=== PATIENT | female | born 1985 | race Caucasian/White ===

== ENCOUNTER 2019-07-14 19:51 | Observation (INO) | payer BC ==
[2019-07-14] MEDS ORDERED: KETOROLAC 30 MG/ML 1 ML VIAL IVP STA (20:19)
[2019-07-14] MEDS ORDERED: SODIUM CHLORIDE 0.9% 1,000 ML IV STA (20:19)
--- NOTE | 2019-07-14 20:24 | ED ---
Abdominal Pain HPI <Vahe Quintana - Last Filed: 07/14/19 21:52> - General Source: patient Mode of arrival: ambulatory Limitations: no limitations <Nelida Holland - Last Filed: 07/14/19 22:17> - General Chief Complaint: Abdominal Pain Stated Complaint: Abd Pain Time Seen by Provider: 07/14/19 19:58 - History of Present Illness Initial Comments: Patient is a 33-year-old female presenting to the emergency department with complaints of right lower quadrant pain 2 days. Patient states the pain sta rted yesterday near her belly button has migrated to her right lower quadrant. She rates the pain at 7/10. She gets some relief of symptoms when laying still. She reports increase in symptoms when she tries to sit forward, stand up or walk. She does admit to left ovary removal, no other abdominal surgeries. She denies having a fever, chills, shortness of breath, chest pain. She does admit to nausea and vomiting yesterday. She denies diarrhea. She had regular bowel movement this morning. She denies being at this time secondary to IUD. She denies any urinary complaints. She has no other complaints at this time. Upon arrival to the ER, patient is tachycardia at 130, rest of vitals are normal. (Nelida Holland) - Related Data Home Medications Medication Instructions Recorded Confirmed Escitalopram [Lexapro] 10 mg PO HS 07/14/19 07/14/19 Allergies Allergy/AdvReac Type Severity Reaction Status Date / Time latex Allergy Rash/Hives Verified 07/14/19 19:58 Review of Systems ROS Other: All systems not noted in ROS Statement are negative. <Vahe Quintana - Last Filed: 07/14/19 21:52> ROS Other: All systems not noted in ROS Statement are negative. <Nelida Holland - Last Filed: 07/14/19 22:17> ROS Statement: Those systems with pertinent positive or pertinent negative responses have been documented in the HPI. Past Medical History History of Any Multi-Drug Resistant Organisms: None Reported Additional Past Surgical History / Comment(s): left ovary removal Past Psychological History: Anxiety Smoking Status: Never smoker Past Alcohol Use History: Occasional Past Drug Use History: None Reported <Nelida Holland - Last Filed: 07/14/19 22:17> General Exam Limitations: no limitations <Nelida Holland - Last Filed: 07/14/19 22:17> - General Exam Comments Initial Comments: GENERAL: Well-appearing, well-nourished and in no acute distress, although appears uncomfortable. HEAD: Atraumatic, normocephalic. EYES: Pupils equal round and reactive to light, extraocular movements intact, sclera anicteric, conjunctiva are normal. ENT: TMs normal, nares patent, oropharynx clear without exudates. Moist mucous membranes. NECK: Normal range of motion, supple without lymphadenopathy or JVD. LUNGS: Breath sounds clear to auscultation bilaterally and equal. No wheezes rales or rhonchi. HEART: Tachycardia rate and rhythm without murmurs, rubs or gallops. ABDOMEN: Tenderness to palpation of the right lower quadrant, positive rebound, positive guarding. Mild right upper quadrant tenderness. Soft, hypoactive bowel sounds. No masses appreciated. : Deferred EXTREMITIES: Normal range of motion, no pitting or edema. No clubbing or cyanosis. NEUROLOGICAL: Normal speech, normal gait. PSYCH: Normal mood, normal affect. SKIN: Warm, Dry, normal turgor, no rashes or lesions noted. (Nelida Holland) Course <Vahe Quintana - Last Filed: 07/14/19 21:52> Vital Signs 07/14/19 07/14/19 19:55 22:14 Temperature 99.5 F 98.4 F Pulse Rate 129 H 104 H Respiratory 20 18 Rate Blood Pressure 129/84 123/82 O2 Sat by Pulse 96 95 Oximetry - Reevaluation(s) Reevaluation #1: 07/14/19 21:52 PA supervision: I proceeded [id number] evaluation the patient does present with complaints of pain and right lower quadrant pain she started yesterday. Elevated white blood cell count was noted over the left shift. Temperature 99.5 CAT scan does show evidence of appendicitis. I did discuss the case with Dr. Miles. The patient will be admitted place an IV antibiotics and by mouth (Vahe Quintana) Medical Decision Making - Lab Data Result diagrams: 07/14/19 20:30 07/14/19 20:30 <Vahe Quintana - Last Filed: 07/14/19 21:52> - Lab Data Result diagrams: 07/14/19 20:30 07/14/19 20:30 <Nelida Holland - Last Filed: 07/14/19 22:17> - Medical Decision Making Patient is a 33-year-old female presenting with right lower quadrant pain 2 days. Patient arrives tachycardia, afebrile. On exam patient has right lower quadrant tenderness with positive rebound. Lab work shows leukocytosis of 17, rest of labs are within normal limits. Lactic acid is normal. Urine does show small bacteria, urine cultures pending. Computed tomography scan of the abdomen was obtained and shows evidence for early acute appendicitis. No abscess seen at this time. Case was discussed with on-call surgeon, Dr. Miles. Patient will be admitted, started on antibiotics and will be NPO. Patient is in agreem ent this plan of care. Case discussed with Dr. Quintana. (Nelida Holland) - Lab Data Lab Results 07/14/19 07/14/19 07/14/19 Range/Units 20:30 20:30 20:30 WBC 17.3 H (3.8-10.6) k/uL RBC 5.01 (3.80-5.40) m/uL Hgb 14.9 (11.4-16.0) gm/dL Hct 44.7 (34.0-46.0) % MCV 89.2 (80.0-100.0) fL MCH 29.7 (25.0-35.0) pg MCHC 33.3 (31.0-37.0) g/dL RDW 12.6 (11.5-15.5) % Plt Count 326 (150-450) k/uL Neutrophils % 81 % Lymphocytes % 11 % Monocytes % 4 % Eosinophils % 2 % Basophils % 0 % Neutrophils # 14.1 H (1.3-7.7) k/uL Lymphocytes # 1.9 (1.0-4.8) k/uL Monocytes # 0.7 (0-1.0) k/uL Eosinophils # 0.4 (0-0.7) k/uL Basophils # 0.1 (0-0.2) k/uL PT 10.3 (9.0-12.0) sec INR 1.0 (<1.2) APTT 25.4 (22.0-30.0) sec Sodium (137-145) mmol/L Potassium (3.5-5.1) mmol/L Chloride (98-107) mmol/L Carbon Dioxide (22-30) mmol/L Anion Gap mmol/L BUN (7-17) mg/dL Creatinine (0.52-1.04) mg/dL Est GFR (CKD-EPI)AfAm (>60 ml/min/1.73 sqM) Est GFR (CKD-EPI)NonAf (>60 ml/min/1.73 sqM) Glucose (74-99) mg/dL Plasma Lactic Acid Eric (0.7-2.0) mmol/L Calcium (8.4-10.2) mg/dL Total Bilirubin (0.2-1.3) mg/dL AST (14-36) U/L ALT (4-34) U/L Alkaline Phosphatase (38-126) U/L Total Protein (6.3-8.2) g/dL Albumin (3.5-5.0) g/dL Amylase (30-110) U/L Lipase (23-300) U/L Urine Color Yellow Urine Appearance Cloudy H (Clear) Urine pH 6.5 (5.0-8.0) Ur Specific [place] 1.034 (1.001-1.035) Urine Protein 1+ H (Negative) Urine Glucose (UA) Negative (Negative) Urine Ketones 4+ H (Negative) Urine Blood Negative (Negative) Urine Nitrite Negative (Negative) Urine Bilirubin 1+ H (Negative) Urine Urobilinogen 4.0 (<2.0) mg/dL Ur Leukocyte Esterase Large H (Negative) Urine RBC 10 H (0-5) /hpf Urine WBC 30 H (0-5) /hpf Ur Squamous Epith Cells 36 H (0-4) /hpf Calcium Oxalate Crystal Many H (None) /hpf Amorphous Sediment Rare H (None) /hpf Urine Bacteria Occasional H (None) /hpf Urine Mucus Few H (None) /hpf Urine HCG, Qual (Not Detectd) 07/14/19 07/14/19 07/14/19 Range/Units 20:30 20:30 20:30 WBC (3.8-10.6) k/uL RBC (3.80-5.40) m/uL Hgb (11.4-16.0) gm/dL Hct (34.0-46.0) % MCV (80.0-100.0) fL MCH (25.0-35.0) pg MCHC (31.0-37.0) g/dL RDW (11.5-15.5) % Plt Count (150-450) k/uL Neutrophils % % Lymphocytes % % Monocytes % % Eosinophils % % Basophils % % Neutrophils # (1.3-7.7) k/uL Lymphocytes # (1.0-4.8) k/uL Monocytes # (0-1.0) k/uL Eosinophils # (0-0.7) k/uL Basophils # (0-0.2) k/uL PT (9.0-12.0) sec INR (<1.2) APTT (22.0-30.0) sec Sodium 136 L (137-145) mmol/L Potassium 3.5 (3.5-5.1) mmol/L Chloride 101 (98-107) mmol/L Carbon Dioxide 24 (22-30) mmol/L Anion Gap 11 mmol/L BUN 11 (7-17) mg/dL Creatinine 0.59 (0.52-1.04) mg/dL Est GFR (CKD-EPI)AfAm >90 (>60 ml/min/1.73 sqM) Est GFR (CKD-EPI)NonAf >90 (>60 ml/min/1.73 sqM) Glucose 121 H (74-99) mg/dL Plasma Lactic Acid Eric 1.0 (0.7-2.0) mmol/L Calcium 9.1 (8.4-10.2) mg/dL Total Bilirubin 0.5 (0.2-1.3) mg/dL AST 28 (14-36) U/L ALT 21 (4-34) U/L Alkaline Phosphatase 73 (38-126) U/L Total Protein 7.3 (6.3-8.2) g/dL Albumin 4.4 (3.5-5.0) g/dL Amylase 50 (30-110) U/L Lipase 50 (23-300) U/L Urine Color Urine Appearance (Clear) Urine pH (5.0-8.0) Ur Specific [place] (1.001-1.035) Urine Protein (Negative) Urine Glucose (UA) (Negative) Urine Ketones (Negative) Urine Blood (Negative) Urine Nitrite (Negative) Urine Bilirubin (Negative) Urine Urobilinogen (<2.0) mg/dL Ur Leukocyte Esterase (Negative) Urine RBC (0-5) /hpf Urine WBC (0-5) /hpf Ur Squamous Epith Cells (0-4) /hpf Calcium Oxalate Crystal (None) /hpf Amorphous Sediment (None) /hpf Urine Bacteria (None) /hpf Urine Mucus (None) /hpf Urine HCG, Qual Not Detected (Not Detectd) Disposition <Vahe Quintana - Last Filed: 07/14/19 21:52> Is patient prescribed a controlled substance at d/c from ED?: No Decision Date: 07/14/19 Decision Time: 22:17 <Nelida Holland - Last Filed: 07/14/19 22:17> Clinical Impression: Acute appendicitis Disposition: ADMITTED IP TO THIS HOSP Condition: Stable Referrals: Rajesh Hermosillo DO [Primary Care Provider] - 1-2 days
[2019-07-14 20:43] LABS: Basophils # (A) 0.1 k/uL (0-0.2); Basophils % (A) 0 %; Eosinophils # (A) 0.4 k/uL (0-0.7); Eosinophils % (A) 2 %; HCT 44.7 % (34.0-46.0); HGB 14.9 gm/dL (11.4-16.0); Lymphocytes # (A) 1.9 k/uL (1.0-4.8); Lymphocytes % (A) 11 %; MCH 29.7 pg (25.0-35.0); MCHC 33.3 g/dL (31.0-37.0); MCV 89.2 fL (80.0-100.0); Mean Platelet Volume 8.8; Monocytes # (A) 0.7 k/uL (0-1.0); Monocytes % (A) 4 %; Neutrophils # (A) 14.1 k/uL (1.3-7.7); Neutrophils % (A) 81 %; Platelet Count 326 k/uL (150-450); RBC 5.01 m/uL (3.80-5.40); RDW 12.6 % (11.5-15.5); WBC 17.3 k/uL (3.8-10.6)
[2019-07-14 20:54] LABS: ALT 21 U/L (4-34); AST 28 U/L (14-36); African American GFR (CKD) >90 (>60 ml/min/1.73 sqM); Albumin 4.4 g/dL (3.5-5.0); Alkaline Phosphatase 73 U/L (38-126); Amylase 50 U/L (30-110); Anion Gap 11 mmol/L; Blood Urea Nitrogen 11 mg/dL (7-17); Calcium 9.1 mg/dL (8.4-10.2); Carbon Dioxide 24 mmol/L (22-30); Chloride 101 mmol/L (98-107); Glucose 121 mg/dL (74-99); Non-African American GFR(CKD) >90 (>60 ml/min/1.73 sqM); Potassium 3.5 mmol/L (3.5-5.1); Sodium 136 mmol/L (137-145); Total Bilirubin 0.5 mg/dL (0.2-1.3); Total Protein 7.3 g/dL (6.3-8.2)
[2019-07-14 20:59] LABS: Amorphous Sediment,Urine Rare /hpf; Appearance,Urine Cloudy (Clear); Bacteria,Urine Occasional /hpf; Bilirubin,Urine 1+ (Negative); Blood,Urine Negative (Negative); Calcium Oxalate Crystals,Urine Many /hpf; Color,Urine Yellow; Glucose,Urine (UA) Negative (Negative); Ketones,Urine 4+ (Negative); Leukocyte Esterase,Urine Large (Negative); Mucus,Urine Few /hpf; Nitrite,Urine Negative (Negative); PH, Urine 6.5 (5.0-8.0); Partial Thromboplastin Time 25.4 sec (22.0-30.0); Protein,Urine 1+ (Negative); Prothrombin Time 10.3 sec (9.0-12.0); RBC,Urine 10 /hpf (0-5); Specific Gravity,Urine 1.034 (1.001-1.035); Squamous Epithelial Cell,Urine 36 /hpf (0-4); WBC,Urine 30 /hpf (0-5)
--- NOTE | 2019-07-14 21:37 | CT ---
EXAMINATION TYPE: CT abdomen pelvis w con DATE OF EXAM: 07/14/2019 COMPARISON: Right lower quadrant pain INDICATION: RLQ pain DLP: 1417.6 mGycm, Automated exposure control for dose reduction was used. CONTRAST: 100 mL of Isovue 300. Study performed without Oral Contrast TECHNIQUE: Axial images were obtained from above the diaphragm to the pubic rami in the axial plane a t 5 mm thick sections. Reconstructed images are reviewed on the computer in the coronal plane. FINDINGS: Limited CT sections are obtained the lung bases. The lung bases are clear. CT ABDOMEN: Liver: Normal Spleen: Normal Pancreas: Normal Adrenal glands: The adrenal glands are normal. Gallbladder: Normal Kidneys: No masses are evident. No hydronephrosis is present. Tiny left cortical renal cyst is pres ent on delayed images. Aorta: Normal Inferior vena cava: Normal. CT PELVIS: Loops of bowel within the abdomen and pelvis are normal. The studies performed without oral contr ast limiting bowel evaluation. Appendix: There is thickening and some enhancement of the appendix wall. Appendix diameter is 1.1 cm greater than a normal 0.7 cm. Inflammatory changes are in the right lower quadrant adjacent to the ap pendix. Findings are compatible with early appendicitis. No abscess formation or perforation is ident ified. Urinary bladder: Decompressed and cannot be evaluated Genitourinary structures: Uterus appears normal. There is an IUD within uterus. There is a right adne xal cyst measuring 2.3 cm. A second right adnexal cyst is present measuring 2.8 cm. Left adnexal is u nremarkable Osseous structures: No suspicious lytic or sclerotic lesions. IMPRESSIONS: 1. Findings compatible with acute appendicitis. Report was called to emergency RN [place] by Dr. Mickie stone by telephone at the time of interpretation. 2. Two right-sided ovarian cysts.
[2019-07-14] MEDS ORDERED: KETOROLAC 30 MG/ML 1 ML VIAL IVP PRN (21:57)
[2019-07-14] MEDS ORDERED: IBUPROFEN 400 MG TAB PO PRN (21:57)
[2019-07-14] MEDS ORDERED: MORPHINE SULFATE 4 MG/ML SYRINGE IV PRN (21:57)
[2019-07-14] MEDS ORDERED: NALOXONE 0.4 MG/ML 1 ML VIAL IV PRN (21:57)
[2019-07-14] MEDS ORDERED: ONDANSETRON 4 MG/2 ML VIAL IVP PRN (21:57)
[2019-07-14] MEDS ORDERED: PIPERACILLIN-TAZOBACTAM 3.375 GM in SODIUM CHLORIDE 0.9% 100 ML IVPB STA (21:59)
[2019-07-14] MEDS: SODIUM CHLORIDE 0.9% 1,000 ML IV SCH (22:10)
--- NOTE | 2019-07-15 08:46 | P.GSHP ---
<Shikha Dotson - Last Filed: 07/15/19 08:41> History of Present Illness HISTORY OF PRESENTING ILLNESS This is a pleasant 33-year-old female. Presented to the emergency room with a 2 day history of abdominal discomfort with nausea and vomiting and low-grade temps at home. She states her pain initially started just above the umbilicus and then radiated mostly to the right side and has been constant. Continues to have ongoing discomfort with any movement or palpation. Currently pain is 2 out of 10. Nausea and vomiting have resolved. Started on [facility] emergency department. DIAGNOSTICS CT abdomen and pelvis with contrast revealed findings compatible with acute appendicitis. Laboratory data reviewed, WBC 17.3, hemoglobin 14.9, platelets 326, sodium 136, potassium 3.5, creatinine 0.59, AST 28 ALT 21, Urine hcg negative. REVIEW OF SYSTEMS At the time of my exam: CONSTITUTIONAL: Denies fever or chills. CARDIOVASCULAR: Denies chest pain, shortness of breath, orthopnea, PND or palpitations. RESPIRATORY: Denies cough. GASTROINTESTINAL: Complains of abdominal pain. Denies diarrhea, constipation, nausea or vomiting. MUSCULOSKELETAL: Denies myalgias. NEUROLOGIC: Denies numbness, tingling or weakness. ENDOCRINE: Denies fatigue, weight change, polydipsia or polyurina. GENITOURINARY: Denies burning, hematuria or urgency with micturation. HEMATOLOGIC: Denies history of anemia or bleeding. PHYSICAL EXAMINATION Blood pressure 102/65 heart rate 89 afebrile and maintaining oxygen saturation on room air. CONSTITUTIONAL: No apparent distress. HEENT: Head is normocephalic. Pupils are equal, round. Sclerae anicteric. Mucous membranes of the mouth are moist. ABDOMEN: Soft, tender right lower quadrant. Positive bowel sounds. NEUROLOGIC EXAMINATION: Patient is awake, alert and oriented x3. ASSESSMENT Abdominal pain, nausea and vomiting x2 days Acute appendicitis Leukocytosis PLAN Recommend appendectomy. I have discussed the risks, benefits and alternative therapies for the above- mentioned procedure and for both sedation/analgesia as well as necessary blood product administration, if indicated, as they pertain to this patient. The patient has indicated understanding and acceptance of the risks and procedures discussed. Questions have been answered appropriately and she is agreeable to move forward with the above-stated procedure. The above impression and plan of care have been discussed and directed by the signing physician. Shikha Clearwater, nurse practitioner, acting as scribe for sign ing physician. Past Medical History Past Medical History: No Reported History History of Any Multi-Drug Resistant Organisms: None Reported Additional Past Surgical History / Comment(s): left ovary removal Past Psychological History: Anxiety Smoking Status: Never smoker Past Alcohol Use History: Occasional Past Drug Use History: None Reported - Past Family History Mother Family Medical History: No Reported History Medications and Allergies Home Medications Medication Instructions Recorded Confirmed Type Escitalopram [Lexapro] 10 mg PO HS 07/14/19 07/14/19 History Allergies Allergy/AdvReac Type Severity Reaction Status Date / Time latex Allergy Rash/Hives Verified 07/15/19 09:44 Surgical - Exam Vital Signs Temp Pulse Resp BP Pulse Ox 99.5 F 129 H 20 129/84 96 07/14/19 19:55 07/14/19 19:55 07/14/19 19:55 07/14/19 19:55 07/14/19 19:55 Results - Labs 07/14/19 20:30 07/14/19 20:30 Abnormal Lab Results - Last 24 Hours (Table) 07/14/19 07/14/19 07/14/19 Range/Units 20:30 20:30 20:30 WBC 17.3 H (3.8-10.6) k/uL Neutrophils # 14.1 H (1.3-7.7) k/uL Sodium 136 L (137-145) mmol/L Glucose 121 H (74-99) mg/dL Urine Appearance Cloudy H (Clear) Urine Protein 1+ H (Negative) Urine Ketones 4+ H (Negative) Urine Bilirubin 1+ H (Negative) Ur Leukocyte Esterase Large H (Negative) Urine RBC 10 H (0-5) /hpf Urine WBC 30 H (0-5) /hpf Ur Squamous Epith Cells 36 H (0-4) /hpf Calcium Oxalate Crystal Many H (None) /hpf Amorphous Sediment Rare H (None) /hpf Urine Bacteria Occasional H (None) /hpf Urine Mucus Few H (None) /hpf Microbiology - Last 24 Hours (Table) 07/14/19 20:30 Urine Culture - Preliminary Urine,Voided Diabetes panel 07/14/19 Range/Units 20:30 Sodium 136 L (137-145) mmol/L Potassium 3.5 (3.5-5.1) mmol/L Chloride 101 (98-107) mmol/L Carbon Dioxide 24 (22-30) mmol/L BUN 11 (7-17) mg/dL Creatinine 0.59 (0.52-1.04) mg/dL Glucose 121 H (74-99) mg/dL Calcium 9.1 (8.4-10.2) mg/dL AST 28 (14-36) U/L ALT 21 (4-34) U/L Alkaline Phosphatase 73 (38-126) U/L Total Protein 7.3 (6.3-8.2) g/dL Albumin 4.4 (3.5-5.0) g/dL Calcium panel 07/14/19 Range/Units 20:30 Calcium 9.1 (8.4-10.2) mg/dL Albumin 4.4 (3.5-5.0) g/dL Pituitary panel 07/14/19 Range/Units 20:30 Sodium 136 L (137-145) mmol/L Potassium 3.5 (3.5-5.1) mmol/L Chloride 101 (98-107) mmol/L Carbon Dioxide 24 (22-30) mmol/L BUN 11 (7-17) mg/dL Creatinine 0.59 (0.52-1.04) mg/dL Glucose 121 H (74-99) mg/dL Calcium 9.1 (8.4-10.2) mg/dL Adrenal panel 07/14/19 Range/Units 20:30 Sodium 136 L (137-145) mmol/L Potassium 3.5 (3.5-5.1) mmol/L Chloride 101 (98-107) mmol/L Carbon Dioxide 24 (22-30) mmol/L BUN 11 (7-17) mg/dL Creatinine 0.59 (0.52-1.04) mg/dL Glucose 121 H (74-99) mg/dL Calcium 9.1 (8.4-10.2) mg/dL Total Bilirubin 0.5 (0.2-1.3) mg/dL AST 28 (14-36) U/L ALT 21 (4-34) U/L Alkaline Phosphatase 73 (38-126) U/L Total Protein 7.3 (6.3-8.2) g/dL Albumin 4.4 (3.5-5.0) g/dL <Kevin Miles - Last Filed: 07/15/19 10:25> Surgical - Exam Vital Signs Temp Pulse Resp BP Pulse Ox 99.5 F 129 H 20 129/84 96 07/14/19 19:55 07/14/19 19:55 07/14/19 19:55 07/14/19 19:55 07/14/19 19:55 Results - Labs 07/14/19 20:30 07/14/19 20:30 Abnormal Lab Results - Last 24 Hours (Table) 07/14/19 07/14/19 07/14/19 Range/Units 20:30 20:30 20:30 WBC 17.3 H (3.8-10.6) k/uL Neutrophils # 14.1 H (1.3-7.7) k/uL Sodium 136 L (137-145) mmol/L Glucose 121 H (74-99) mg/dL Urine Appearance Cloudy H (Clear) Urine Protein 1+ H (Negative) Urine Ketones 4+ H (Negative) Urine Bilirubin 1+ H (Negative) Ur Leukocyte Esterase Large H (Negative) Urine RBC 10 H (0-5) /hpf Urine WBC 30 H (0-5) /hpf Ur Squamous Epith Cells 36 H (0-4) /hpf Calcium Oxalate Crystal Many H (None) /hpf Amorphous Sediment Rare H (None) /hpf Urine Bacteria Occasional H (None) /hpf Urine Mucus Few H (None) /hpf Microbiology - Last 24 Hours (Table) 07/14/19 20:30 Urine Culture - Preliminary Urine,Voided Diabetes panel 07/14/19 Range/Units 20:30 Sodium 136 L (137-145) mmol/L Potassium 3.5 (3.5-5.1) mmol/L Chloride 101 (98-107) mmol/L Carbon Dioxide 24 (22-30) mmol/L BUN 11 (7-17) mg/dL Creatinine 0.59 (0.52-1.04) mg/dL Glucose 121 H (74-99) mg/dL Calcium 9.1 (8.4-10.2) mg/dL AST 28 (14-36) U/L ALT 21 (4-34) U/L Alkaline Phosphatase 73 (38-126) U/L Total Protein 7.3 (6.3-8.2) g/dL Albumin 4.4 (3.5-5.0) g/dL Calcium panel 07/14/19 Range/Units 20:30 Calcium 9.1 (8.4-10.2) mg/dL Albumin 4.4 (3.5-5.0) g/dL Pituitary panel 07/14/19 Range/Units 20:30 Sodium 136 L (137-145) mmol/L Potassium 3.5 (3.5-5.1) mmol/L Chloride 101 (98-107) mmol/L Carbon Dioxide 24 (22-30) mmol/L BUN 11 (7-17) mg/dL Creatinine 0.59 (0.52-1.04) mg/dL Glucose 121 H (74-99) mg/dL Calcium 9.1 (8.4-10.2) mg/dL Adrenal panel 07/14/19 Range/Units 20:30 Sodium 136 L (137-145) mmol/L Potassium 3.5 (3.5-5.1) mmol/L Chloride 101 (98-107) mmol/L Carbon Dioxide 24 (22-30) mmol/L BUN 11 (7-17) mg/dL Creatinine 0.59 (0.52-1.04) mg/dL Glucose 121 H (74-99) mg/dL Calcium 9.1 (8.4-10.2) mg/dL Total Bilirubin 0.5 (0.2-1.3) mg/dL AST 28 (14-36) U/L ALT 21 (4-34) U/L Alkaline Phosphatase 73 (38-126) U/L Total Protein 7.3 (6.3-8.2) g/dL Albumin 4.4 (3.5-5.0) g/dL
[2019-07-15] MEDS ORDERED: IV FLUID CONTINUATION 1,000 ML IV ONE (09:37)
[2019-07-15] MEDS ORDERED: ONDANSETRON 4 MG/2 ML VIAL IVP ONE (09:37)
[2019-07-15] MEDS ORDERED: DEXAMETHASONE SOD PHOSPHATE 10 MG/ML 1 ML VIAL IV ONE (09:38)
[2019-07-15] MEDS ORDERED: HEPARIN SODIUM,PORCINE 5,000 UNIT/ML 1 ML VIAL SQ ONE (10:06)
[2019-07-15] MEDS ORDERED: LIDOCAINE 1% INJ 10MG/ML (20 ML MDV) ONE (10:08)
[2019-07-15] MEDS ORDERED: NEOSTIGMINE 1 MG/ML 10 ML VIAL ONE (10:08)
[2019-07-15] MEDS ORDERED: SUCCINYLCHOLINE CHLORIDE 100 MG/5 ML SYR IV ONE (10:08)
[2019-07-15] MEDS ORDERED: PROPOFOL 10 MG/ML 20 ML VIAL IV ONE (10:08)
[2019-07-15] MEDS ORDERED: GLYCOPYRROLATE 0.2 MG/ML 2 ML VIAL ONE (10:08)
[2019-07-15] MEDS ORDERED: KETOROLAC 30 MG/ML 1 ML VIAL ONE (10:08)
[2019-07-15] MEDS ORDERED: BUPIVACAIN-EPI 0.25%-1:200,000 30 ML VIAL SQ ONE (10:08)
[2019-07-15] MEDS ORDERED: ROCURONIUM BROMIDE 10 MG/ML 5 ML VIAL IV ONE (10:08)
[2019-07-15] MEDS ORDERED: MIDAZOLAM 2 MG/2 ML VIAL ONE (10:08)
[2019-07-15] MEDS ORDERED: fentaNYL (PF) 50 MCG/ML 2 ML AMP ONE (10:08)
[2019-07-15] MEDS ORDERED: ceFAZolin 1,000 MG VIAL IVPB ONE (10:15)
--- NOTE | 2019-07-15 10:57 | P.OP ---
Date of Procedure: 07/15/19 Preoperative Diagnosis: Acute appendicitis Postoperative Diagnosis: Acute appendicitis Procedure(s) Performed: Laparoscopic appendectomy Anesthesia: INO Surgeon: Kevin Miles Estimated Blood Loss (ml): 5 Pathology: other (Appendix) Condition: stable Disposition: PACU Description of Procedure: HaThe patient's placed on the operating table in the supine position. The patient received general anesthesia. The abdomen was prepped and draped in the usual sterile fashion. The skin was anesthetized 1% local Xylocaine at the trocar sites. Using an 11 blade the skin was incised at the umbilicus. The umbilicus was grasped with a Circle clamp and then a Veress needle was placed into the peritoneal cavity. Position of the Veress needle was confirmed with positive drop test. After adequate insufflation a 5 mm trocar was placed into the peritoneal cavity. The abdomen was further insufflated. And then the laparoscope was placed in the peritoneal cavity. Next a 5 mm trocar was placed in the midline suprapubic position. And then a 10 mm trocar was placed in the midline epigastric position. The patient was rotated with the right side up and in Trendelenburg. The appendix was visualized. The appendix appeared to be inflamed. The appendix was grasped and then using the Harmonic scissors the mesoappendix was divided. A PDS Endoloop was then placed around the base of the appendix. And then the appendix was divided using Harmonic scissors. The appendix was placed into an Endo Catch and brought out through the 10 mm trocar site. The abdomen was irrigated. There is no bleeding seen. The trochars withdrawn. The skin was closed interrupted 3-0 Monocryl suture. Dermabond dressing was applied. Patient was sent to recovery room in stable condition.
[2019-07-15] MEDS ORDERED: ACETAMINOPHEN TAB 325 MG TAB PO PRN (10:58)
[2019-07-15] MEDS ORDERED: HYDROmorphone 0.5 MG/0.5 ML SYRINGE IVP PRN (10:58)
[2019-07-15] MEDS ORDERED: LACTATED RINGERS 1,000 ML IV ONE (10:58)
[2019-07-15] MEDS ORDERED: traMADol 50 MG TAB PO PRN (10:58)
[2019-07-15] MEDS ORDERED: NALOXONE 0.4 MG/ML 1 ML VIAL IV PRN (10:58)
[2019-07-15] MEDS ORDERED: oxyCODONE-APAP 5-325MG 1 EACH TAB PO PRN (10:58)
[2019-07-15] MEDS: SODIUM CHLORIDE 0.9% 1,000 ML IV SCH ×3 (11:04→20:11)
[2019-07-15] MEDS ORDERED: HYDROmorphone 0.5 MG/0.5 ML SYRINGE IVP ONE ×2 (11:11→11:19)
--- NOTE | 2019-07-15 14:38 | P.CONS ---
History of Present Illness - Reason for Consult Consult date: 07/15/19 Medical management anxiety Requesting physician: Kevin Miles - Chief Complaint Right lower quadrant abdominal pain - History of Present Illness This is a 33-year-old female with history of anxiety, presented to the ER with history of persistent right lower quadrant abdominal pain accompanied by fever, nausea vomiting or diarrhea. No nausea, vomiting, diarrhea resolved .Patient states initially started 2 days ago with pain supraumbilical, radiating to right side, eventually localizing to the right lower quadrant. Worsened by exertion, palpitation. CT abdomen and pelvis reported findings compatible with acute appendicitis , right adnexal cyst measuring 2.3 cm, a second right adnexal cyst 2.8 mm . Afebrile, WBC 17.3. Hemoglobin 14.9, platelets 326. UA reported large leukocytes, urine WBCs of 30, negative nitrates, occasional bacteria. Urine culture pending. Zosyn initiated, evaluated by surgery and proceeded with laparoscopic appendectomy. Tolerated procedure well. Review of Systems ROS Other: All systems not noted in ROS Statement are negative. ROS Statement: Those systems with pertinent positive or pertinent negative responses have been documented in the HPI. Past Medical History Past Medical History: No Reported History History of Any Multi-Drug Resistant Organisms: None Reported Additional Past Surgical History / Comment(s): left ovary removal Past Psychological History: Anxiety Smoking Status: Never smoker Past Alcohol Use History: Occasional Past Drug Use History: None Reported - Past Family History Mother Family Medical History: No Reported History Medications and Allergies Home Medications Medication Instructions Recorded Confirmed Type Escitalopram [Lexapro] 10 mg PO HS 07/14/19 07/14/19 History Allergies Allergy/AdvReac Type Severity Reaction Status Date / Time latex Allergy Rash/Hives Verified 07/15/19 09:44 Physical Exam Vitals: Vital Signs Temp Pulse Pulse Resp BP BP Pulse Ox 07/15/19 11:00 78 16 111/56 100 07/15/19 10:54 97.4 F L 91 16 115/55 95 07/15/19 09:29 97.7 F 100 17 115/74 99 07/15/19 08:00 89 16 07/15/19 05:00 97.8 F 89 16 102/65 96 07/14/19 22:42 98.6 F 100 17 108/72 94 L 07/14/19 22:40 17 07/14/19 22:14 98.4 F 104 H 18 123/82 95 07/14/19 19:55 99.5 F 129 H 20 129/84 96 Intake and Output 07/14/19 07/15/19 07/15/19 22:59 06:59 14:59 Intake Total 480 720 Output Total 5 Balance 480 715 Intake: IV 720 Intake, IV Titration 480 Amount Sodium Chloride 0.9% 1, 480 000 ml @ 60 mls/hr IV . [id number] [facility] Rx#:[id number] Output: Estimated Blood Loss 5 Other: # Voids 1 Weight 92.986 kg 88.451 kg PHYSICAL EXAM: VITAL SIGNS: As above GENERAL: Sitting up in bed, no acute HEENT: Conjunctivae normal. eyes normal. Oral mucosa moist NECK: No JVD. No thyroid enlargement. No LNs CARDIOVASCULAR: S1, S2 regular. No murmur RESPIRATION: Breath sounds diminished in the bases. No rhonchi or crackles. No bronchial breathing. ABDOMEN: Soft, tender . No guarding. Status post surgery , laparoscopic sites well approximated, clean dry and intact .Bowel sounds heard. LEGS: No edema. no swelling PSYCHIATRY: Alert and oriented X3, mood and affect normal. NERVOUS SYSTEM: Cranial N 2-12 grossly normal. Moves all 4 limbs. No focal deficits. Strength and sensation grossly intact.. Skin: no rash Results CBC & Chem 7: 07/14/19 20:30 07/14/19 20:30 Labs: Abnormal Lab Results - Last 24 Hours (Table) 07/14/19 07/14/19 07/14/19 Range/Units 20:30 20:30 20:30 WBC 17.3 H (3.8-10.6) k/uL Neutrophils # 14.1 H (1.3-7.7) k/uL Sodium 136 L (137-145) mmol/L Glucose 121 H (74-99) mg/dL Urine Appearance Cloudy H (Clear) Urine Protein 1+ H (Negative) Urine Ketones 4+ H (Negative) Urine Bilirubin 1+ H (Negative) Ur Leukocyte Esterase Large H (Negative) Urine RBC 10 H (0-5) /hpf Urine WBC 30 H (0-5) /hpf Ur Squamous Epith Cells 36 H (0-4) /hpf Calcium Oxalate Crystal Many H (None) /hpf Amorphous Sediment Rare H (None) /hpf Urine Bacteria Occasional H (None) /hpf Urine Mucus Few H (None) /hpf Microbiology - Last 24 Hours (Table) 07/14/19 20:30 Urine Culture - Preliminary Urine,Voided Assessment and Plan Assessment: Acute right lower quadrant abdominal pain Acute appendicitis, status post laparoscopic appendectomy Leukocytosis, secondary to the above Anxiety, history of Plan: Continue on current medication regime ,monitoring incident diabetic treatment. Aggressive pulmonary toileting with incentive spirometer ordered. PPI in place for GI prophylaxis. Increase ambulation as tolerated. Home meds have been reviewed and resumed accordingly .Thank you Dr. Miles for the consult. The impression and plan of care has been dictated as directed. : I performed a history and examination of this patient, discussed the same with the dictator. I agree with the dictator's note ,documented as a scribe. Any additional findings or plans will be noted.
[2019-07-15] MEDS: HYDROcodone/APAP 5-325MG 1 EACH TAB PO PRN (16:22)
[2019-07-15] MEDS: PANTOPRAZOLE 40 MG/10 ML VIAL IVP SCH (16:23)
[2019-07-15] MEDS: DOCUSATE 100 MG CAP PO SCH (20:11)
[2019-07-16 05:03] VITALS: BP 95/60; PULSE 80; RESP 17; TEMP 97.9
[2019-07-16] MEDS: DOCUSATE 100 MG CAP PO SCH (07:58)
[2019-07-16] MEDS: PANTOPRAZOLE 40 MG/10 ML VIAL IVP SCH (07:58)
[2019-07-16] MEDS: HYDROcodone/APAP 5-325MG 1 EACH TAB PO PRN (07:58)
[2019-07-16] MEDS ORDERED: ENOXAPARIN 40 MG/0.4 ML SYRINGE SQ SCH (09:00)
--- NOTE | 2019-07-16 10:30 | P.PN ---
Subjective Progress Note Date: 07/16/19 This is a 33-year-old female with history of anxiety, presented to the ER with history of persistent right lower quadrant abdominal pain accompanied by fever, nausea vomiting or diarrhea. No nausea, vomiting, diarrhea resolved .Patient states initially started 2 days ago with pain supraumbilical, radiating to right side, eventually localizing to the right lower quadrant. Worsened by exertion, palpitation. CT abdomen and pelvis reported findings compatible with acute appendicitis , right adnexal cyst measuring 2.3 cm, a second right adnexal cyst 2.8 mm . Afebrile, WBC 17.3. Hemoglobin 14.9, platelets 326. UA reported large leukocytes, urine WBCs of 30, negative nitrates, occasional bacteria. Urine culture pending. Zosyn initiated, evaluated by surgery and proceeded with laparoscopic appendectomy. Tolerated procedure well. 07/16/2019 significant clinical improvement. Tolerating diet with no nausea vomiting or diarrhea. Ambulating, tolerating exertion well. Denies lightheadedness, dizziness or focal deficits. Denies chest pain, palpitations or shortness of breath. Incentive spirometer up to 750. Reports surgical tenderness controlled with current pain medication regimen. Afebrile. Objective - Vital Signs Vital signs: Vital Signs Temp 97.9 F 07/16/19 05:00 Pulse 80 07/16/19 05:00 Resp 17 07/16/19 05:00 BP 95/60 07/16/19 05:00 Pulse Ox 94 L 07/16/19 05:00 Intake & Output 07/15/19 07/16/19 07/16/19 18:59 06:59 18:59 Intake Total 1795 1310 Output Total 5 Balance 1790 1310 Weight 88.451 kg Intake: IV 795 Intake, IV Titration 1000 720 Amount Lactated Ringers 1,000 ml 1000 @ 125 mls/hr IV .Q8H [facility] Rx#:[id number] Sodium Chloride 0.9% 1, 720 000 ml @ 60 mls/hr IV . [id number] [facility] Rx#:[id number] Oral 590 Output: Estimated Blood Loss 5 Other: Voiding Method Toilet Toilet # Voids 1 1 - Exam VITAL SIGNS: As above GENERAL: Sitting up in bed, no acute HEENT: Conjunctivae normal. eyes normal. Oral mucosa moist NECK: No JVD. No thyroid enlargement. No LNs CARDIOVASCULAR: S1, S2 regular. No murmur RESPIRATION: Breath sounds diminished in the bases. No crackles, no wheezing ABDOMEN: Soft, tender . No guarding. Status post surgery , laparoscopic sites well approximated, clean dry and intact .Bowel sounds heard. LEGS: No edema. no swelling PSYCHIATRY: Alert and oriented X3, mood and affect normal. NERVOUS SYSTEM: Cranial N 2-12 grossly normal. Moves all 4 limbs. No focal deficits. Strength and sensation grossly intact.. Skin: no rash Microbiology 07/14/19 20:30 Urine,Voided Urine Culture - Final - Labs CBC & Chem 7: 07/14/19 20:30 07/14/19 20:30 Labs: Microbiology - Last 24 Hours (Table) 07/14/19 20:30 Urine Culture - Final Urine,Voided Assessment and Plan Assessment: Acute right lower quadrant abdominal pain Acute appendicitis, status post laparoscopic appendectomy Leukocytosis, secondary to the above Anxiety, history of Plan: Continue on current medication regime ,monitoring incident diabetic treatment. Discharge planning in progress for today as per surgery. Recommend patient continue with aggressive pulmonary toileting with incentive spirometer at home as previously advised. Medically cleared for discharge. Follow-up with Dr. Hermosillo in 1 week. The impression and plan of care has been dictated as directed. : I performed a history and examination of this patient, discussed the same with the dictator. I agree with the dictator's note ,documented as a scribe. Any additional findings or plans will be noted.
--- NOTE | 2019-07-16 14:39 | P.DS ---
Providers Date of admission: 07/14/19 21:52 Attending physician: Kevin Miles Consults: 07/15/19 10:58 Consult Physician Routine Consulting Provider: Rajesh Hermosillo Consult Reason/Comments: Medical management Do you want consulting provider notified?: Yes Primary care physician: Rajesh Hermosillo [facility] Course: This is a 33-year-old female who presented to the emergency department with symptoms of abdominal pain and was found to have acute appendicitis. She underwent uncomplicated laparoscopic appendectomy with Dr. Corrales. She is postoperative day #1 resting comfortably with no symptoms of abdominal pain, nausea, vomiting or diarrhea. She is passing gas. Vitals have remained stable. Her pain is well-controlled on current regimen. Stable for discharge to follow-up in the office in one week for poor surgical visit. She has been advised no heavy lifting over 10 pounds, limited activity and no driving while taking narcotic pain medication. Patient Condition at Discharge: Stable Plan - Discharge Summary New Discharge Prescriptions: New Docusate [Colace] 100 mg PO BID #30 cap HYDROcodone/APAP 5-325MG [Jay 5-325] 1 tab PO Q6HR PRN 3 Days #12 tab PRN Reason: Pain Continue Escitalopram [Lexapro] 10 mg PO HS Discharge Medication List Escitalopram [Lexapro] 10 mg PO HS 07/14/19 [History] Docusate [Colace] 100 mg PO BID #30 cap 07/16/19 [Rx] HYDROcodone/APAP 5-325MG [Jay 5-325] 1 tab PO Q6HR PRN 3 Days #12 tab 07/16/19 [Rx] Follow up Appointment(s)/Referral(s): Rajesh Hermosillo DO [Primary Care Provider] - 07/23/19 10:10 am () Kevin Miles MD [STAFF PHYSICIAN] - 07/23/19 1:15 pm Patient Instructions/Handouts: Hydrocodone/Acetaminophen (By mouth), Laxative, Stool Softeners (By mouth), Laparoscopic Appendectomy (DC) Activity/Diet/Wound Care/Special Instructions: No driving while taking narcotic pain medication. You may shower. No swimming, soaking, hot tubs or tub baths. No lifting greater than 10 pounds. Limited activity until follow up with surgeon. IS every hour 10 while awake
== END 2019-07-16 11:27 ==
LOC: EC 19:51 → 5NMEDONC 21:52
PROVIDERS: ADMIT Surgery; ATTEND Surgery
DX: K35.33 Acute appendicitis with perforation, localized peritonitis, and gangrene, with abscess (principal); E78.5 Hyperlipidemia, unspecified; Z97.5 Presence of (intrauterine) contraceptive device; Z90.721 Acquired absence of ovaries, unilateral; Z79.899 Other long term (current) drug therapy; Z91.040 Latex allergy status; F41.9 Anxiety disorder, unspecified
CPT/HCPCS: 44970; 99285; 36415; 88304; 80053; 82150; 83605; 83690; 85025; 85610; 85730; 81001; 81025; 87086; 74177; G0378 ×3; J2543; J2250; J1644; J1100; J2710; J2405; J0690; J2001; J1650; J3010; J1885 ×2; J0330; J2704; C9113 ×2; J1170; Q9967

== ENCOUNTER 2021-08-05 14:21 | Emergency (ER) | payer BC ==
[2021-08-05 14:30] VITALS: TEMP 97.5
[2021-08-05] MEDS ORDERED: IBUPROFEN 800 MG TAB PO STA (14:50)
--- NOTE | 2021-08-05 14:53 | ED ---
General Adult HPI - General Chief complaint: Extremity Injury, Lower Stated complaint: Fall-R ankle injury Time Seen by Provider: 08/05/21 14:46 Source: patient, RN notes reviewed, old records reviewed Mode of arrival: ambulatory Limitations: no limitations - History of Present Illness Initial comments: Well-appearing 35-year-old female that presents with significant other complaining of right ankle pain. Patient states that she rolled her ankle while in the garage on the step. She states that the pain is 10 out of 10. She has no leg or knee pain. Denies any medical history. -: hour(s) (1) Location: right, lower extremity (ankle) Severity scale (1-10): 10 Quality: aching, constant Improves with: immobilization Worsens with: movement Associated Symptoms: denies other symptoms Treatments Prior to Arrival: none - Related Data Home Medications Medication Instructions Recorded Confirmed Escitalopram [Lexapro] 10 mg PO HS 07/14/19 07/14/19 Previous Rx's Medication Instructions Recorded Docusate [Colace] 100 mg PO BID #30 cap 07/16/19 HYDROcodone/APAP 5-325MG [[place] 1 tab PO Q6HR PRN 3 Days #12 tab 07/16/19 5-325] Ibuprofen [Motrin] 800 mg PO Q6HR #30 tab 08/05/21 Allergies Allergy/AdvReac Type Severity Reaction Status Date / Time latex Allergy Rash/Hives Verified 08/05/21 14:30 Review of Systems ROS Statement: Those systems with pertinent positive or pertinent negative responses have been documented in the HPI. ROS Other: All systems not noted in ROS Statement are negative. Past Medical History Past Medical History: No Reported History History of Any Multi-Drug Resistant Organisms: None Reported Past Surgical History: Appendectomy Additional Past Surgical History / Comment(s): left ovary removal Past Psychological History: Anxiety Smoking Status: Never smoker Past Alcohol Use History: Occasional Past Drug Use History: None Reported - Past Family History Mother Family Medical History: No Reported History General Exam Limitations: no limitations General appearance: alert, in no apparent distress Eye exam: Present: normal appearance. Absent: scleral icterus, conjunctival injection Respiratory exam: Present: normal lung sounds bilaterally. Absent: respiratory distress, accessory muscle use Cardiovascular Exam: Present: tachycardia Right Lower Leg exam: Absent: tenderness, swelling Ankle exam: Present: tenderness, swelling (Swelling along the right lateral malleolus). Absent: full ROM, abrasion, laceration, ecchymosis, erythema Foot/Toe exam: Present: normal inspection. Absent: tenderness, swelling, abrasion, laceration, ecchymosis, deformity, erythema, tenderness at base of 5th metatarsal Neurovascular tendon exam: Present: no vascular compromise. Absent: abnormal cap refill, extremity cold to touch, pallor, foot drop Neurological exam: Present: alert, oriented X3 Psychiatric exam: Present: normal affect, normal mood Skin exam: Present: warm, dry, normal color. Absent: rash, cyanosis, diaphoretic, erythema, pallor Course Vital Signs 08/05/21 08/05/21 14:28 16:32 Temperature 97.5 F L Pulse Rate 118 H 89 Respiratory 22 20 Rate Blood Pressure 142/91 138/84 O2 Sat by Pulse 99 99 Oximetry Medical Decision Making - Medical Decision Making X-ray shows no acute fracture or dislocation. There is marked soft tissue swelling consistent with ligamentous injury. Patient is neurovascularly intact. Patient was placed in a stirrup splint, given crutches and directed to follow up with orthopedics. She was instructed to rest, ice, elevate and take Motrin for the next 3 days to decrease pain and swelling. Return to the emergency room with any new or concerning symptoms including increased pain, pallor or numbness and tingling. Patient is agreeable to this plan of care. Disposition Clinical Impression: Ankle sprain Disposition: HOME SELF-CARE Condition: Good Instructions (If sedation given, give patient instructions): Ankle Sprain (ED) Additional Instructions: Wear the ankle splint and use crutches until pain resolves or until cleared by orthopedics next week. Take Motrin as prescribed. Rest, ice, elevate while at home. Prescriptions: Ibuprofen [Motrin] 800 mg PO Q6HR #30 tab Is patient prescribed a controlled substance at d/c from ED?: No Referrals: Rajesh Hermosillo DO [Primary Care Provider] - 1-2 days Negrito Parker MD [STAFF PHYSICIAN] - 1-2 days Time of Disposition: 15:49
--- NOTE | 2021-08-05 15:45 | XR ---
Right ankle HISTORY: Pain following trauma. COMPARISON: None. TECHNIQUE: 3 views the right ankle were obtained. FINDINGS: There is no fracture or focal intraosseous abnormality. The ankle mortise is intact. There is marked soft tissue swelling over the lateral malleolus likely indicating ligamentous injury. There is no soft tissue calcification. IMPRESSION: 1. No fracture or dislocation. 2. Marked soft tissue swelling over the lateral malleolus.
[2021-08-05 16:37] VITALS: BP 138/84; PULSE 89; RESP 20
== END 2021-08-05 16:32 | disposition home or self-care (01) ==
LOC: EC 14:21
DX: S93.401A Sprain of unspecified ligament of right ankle, initial encounter (principal); Z91.040 Latex allergy status; X50.1XXA Overexertion from prolonged static or awkward postures, initial encounter
CPT/HCPCS: 99283

== ENCOUNTER → 2023-04-05 | Outpatient (CLI) | payer BC, OTHER ==
[2023-04-05 15:11] LABS: Basophils # (A) 0.05 X 10*3/uL (0.00-0.10); Basophils % (A) 0.7 %; Eosinophils # (A) 0.09 X 10*3/uL (0.04-0.35); Eosinophils % (A) 1.3 %; HCT 44.2 % (37.2-46.3); HGB 14.3 g/dL (12.0-15.0); Lymphocytes # (A) 1.63 X 10*3/uL (0.90-5.00); Lymphocytes % (A) 23.3 %; MCH 28.9 pg (27.0-32.0); MCHC 32.4 g/dL (32.0-37.0); MCV 89.3 FL (80.0-97.0); Mean Platelet Volume 10.8 FL (9.5-12.2); Monocytes # (A) 0.49 X 10*3/uL (0.20-1.00); NRBC Per 100 WBC 0 X 10*3/uL (0.00-0.01); Neutrophils # (A) 4.73 X 10*3/uL (1.80-7.70); Neutrophils % (A) 67.4 %; Platelet Count 354 X 10*3/uL (140-440); RBC 4.95 X 10*6/uL (4.10-5.20); RDW 12.8 % (11.5-14.5); WBC 7.01 X 10*3/uL (4.50-10.00)
[2023-04-05 15:20] LABS: BUN/Creat Ratio 20.83 Ratio (12.00-20.00); Blood Urea Nitrogen 12.5 mg/dL (9.0-27.0); Chloride 104 mmol/L (96-109); Glucose 64 mg/dL (70-110); Potassium 4.3 mmol/L (3.5-5.5); Sodium 140 mmol/L (135-145)
[2023-04-05 15:21] LABS: Calcium 9.6 mg/dL (8.7-10.3); Carbon Dioxide 25.5 mmol/L (21.6-31.8)
== END | disposition home or self-care (01) ==
LOC: LABPAT 08:40
PROVIDERS: ATTEND Obstetrics & Gynecology
DX: Z01.812 Encounter for preprocedural laboratory examination (principal)
CPT/HCPCS: 80048; 85025; 86850; 86900; 86901

== ENCOUNTER 2023-04-15 05:44 | Day surgery (SDC) | payer BC, OTHER ==
--- NOTE | 2023-04-14 19:14 | P.HPOB ---
History of Present Illness H&P Date: 04/14/23 Chief Complaint: menometrorrhagia, persistent abnormal pap 37 year old presents for Total Laparoscopic hysterectomy bilateral salpingectomy with da vinic, diagnostic cystoscopy. Review of Systems All systems: negative Constitutional: Denies chills, Denies fever Eyes: denies blurred vision, denies pain Ears, nose, mouth and throat: Denies headache, Denies sore throat Cardiovascular: Denies chest pain, Denies shortness of breath Respiratory: Denies cough Gastrointestinal: Denies abdominal pain, Denies diarrhea, Denies nausea, Denies vomiting Genitourinary: Denies dysuria, Denies hematuria Musculoskeletal: Denies myalgias Integumentary: Denies pruritus, Denies rash Neurological: Denies numbness, Denies weakness Psychiatric: Denies anxiety, Denies depression Endocrine: Denies fatigue, Denies weight change Past Medical History Past Medical History: No Reported History History of Any Multi-Drug Resistant Organisms: None Reported Past Surgical History: Appendectomy Additional Past Surgical History / Comment(s): left ovary removal, IUD Past Anesthesia/Blood Transfusion Reactions: No Reported Reaction Smoking Status: Never smoker - Past Family History Mother Family Medical History: Coronary Artery Disease (CAD), Diabetes Mellitus, Hyperlipidemia, Hypertension Father History Unknown: Yes Medications and Allergies Home Medications Medication Instructions Recorded Confirmed Type metFORMIN HCL [Glucophage] 500 mg PO W/SUPPER 04/10/23 04/10/23 History Allergies Allergy/AdvReac Type Severity Reaction Status Date / Time latex Allergy Rash/Hives Verified 04/10/23 09:45 Exam Osteopathic Statement: *. No significant issues noted on an osteopathic structural exam other than those noted in the History and Physical/Consult. HEart: RRR Lungs: CTAB ABdomen: soft, nontender Extremeites: neg nata's Assessment and Plan (1) Menometrorrhagia Status: Acute Code(s): N92.1 - EXCESSIVE AND FREQUENT MENSTRUATION WITH IRREGULAR CYCLE SNOMED Code(s): 927983497 (2) Cervical dysplasia Status: Acute Code(s): N87.9 - DYSPLASIA OF CERVIX UTERI, UNSPECIFIED SNOMED Code(s): 89966778 Plan: 1. [facility] BS using da glen, diagnostic cystoscopy
[2023-04-15 06:17] LABS: Glucose,Whole Blood 112 mg/dL (70-110)
[2023-04-15] MEDS ORDERED: LACTATED RINGERS 1,000 ML IV ONE (06:22)
[2023-04-15] MEDS ORDERED: HYDROmorphone 0.5 MG/0.5 ML SYRINGE IVP PRN (06:23)
[2023-04-15] MEDS ORDERED: LIDOCAINE 1% (10MG/ML) FOR IV START INTRADERMA PRN (06:23)
[2023-04-15] MEDS ORDERED: DEXAMETHASONE SOD PHOSPHATE 4 MG/ML 1 ML VIAL IV ONE (06:23)
[2023-04-15] MEDS ORDERED: droPERidol 5 MG/2 ML VIAL IVP ONE (06:23)
[2023-04-15] MEDS ORDERED: SCOPOLAMINE 1 MG/72 HR PATCH TRANSDERM ONE ×2 (06:23→06:35)
[2023-04-15] MEDS ORDERED: ONDANSETRON 4 MG/2 ML VIAL IVP PRN ×2 (06:23→09:29)
[2023-04-15] MEDS ORDERED: LACTATED RINGERS 1,000 ML IV SCH (06:23)
[2023-04-15] MEDS ORDERED: ONDANSETRON 4 MG/2 ML VIAL ONE (06:25)
[2023-04-15] MEDS ORDERED: DEXAMETHASONE SOD PHOSPHATE 4 MG/ML 1 ML VIAL IVP ONE (06:35)
[2023-04-15] MEDS ORDERED: fentaNYL (PF) 50 MCG/1 ML VIAL IVP ONE (06:49)
[2023-04-15] MEDS ORDERED: MIDAZOLAM 2 MG/2 ML VIAL IVP ONE (06:49)
--- NOTE | 2023-04-15 07:05 | P.ANPRN ---
Procedure Note - Anesthesia - Epidural/Spinal Spinal Time Out Performed: Yes Date of Procedure: 04/15/23 Procedure Start Time: 06:40 Procedure Stop Time: 06:50 Location of Patient: PreOp Indication: Acute Post-Operative Pain, Analgesia, Requested by Surgeon Sedation Type: Sedate with meaningful contact maintained Preparation: Sterile Prep Position: Sitting Catheter: None Needle Guage: 22 Injectate: Duramorph0.3mg+fentanyl 25micrgram Blood Aspirated: No Pain Paresthesia on Injection Noted: No Events: Uneventful and Well Tolerated
[2023-04-15] MEDS ORDERED: LIDOCAINE 1% INJ 10MG/ML (20 ML MDV) ONE (07:25)
[2023-04-15] MEDS ORDERED: MIDAZOLAM 2 MG/2 ML VIAL ONE (07:25)
[2023-04-15] MEDS ORDERED: ROCURONIUM 10 MG/ML (5 ML VIAL) IV ONE (07:25)
[2023-04-15] MEDS ORDERED: PROPOFOL 10 MG/ML 20 ML VIAL IV ONE (07:25)
[2023-04-15] MEDS ORDERED: NEOSTIGMINE 1 MG/ML 10 ML VIAL ONE (07:25)
[2023-04-15] MEDS ORDERED: SUCCINYLCHOLINE CHLORIDE 200 MG/10 ML VIAL IV ONE (07:25)
[2023-04-15] MEDS ORDERED: GLYCOPYRROLATE 0.2 MG/ML 2 ML VIAL ONE (07:25)
[2023-04-15] MEDS ORDERED: fentaNYL (PF) 50 MCG/ML 2 ML AMP ONE (07:25)
[2023-04-15] MEDS ORDERED: BUPIVACAINE (PF) 0.25% 30 ML VIAL SQ ONE (07:56)
--- NOTE | 2023-04-15 09:00 | P.OP ---
Date of Procedure: 04/15/23 Preoperative Diagnosis: 1. metromenorrhagia 2. Cervical dysplasia Postoperative Diagnosis: same Procedure(s) Performed: Removal of IUD, total laparoscopic hysterectomy right salpingectomy using da Wilder and diagnostic cystoscopy Anesthesia: INO Surgeon: Vidhi Lucio Ice Cream Scooper #1: Delores Carbajal Estimated Blood Loss (ml): 50 IV fluids (ml): 600 Urine output (ml): 200 Pathology: other (Uterus, cervix, right fallopian tube) Condition: stable Disposition: PACU Operative Findings: Sounded to 10 cm and cervix measured 4 cm Description of Procedure: Patient taken the operating room where general anesthesia was obtained without difficulty. She is prepped and draped in normal sterile fashion dorsal lithotomy position, legs placed in the Benny stirrups. Weighted speculum placed in the vagina and the anterior lip the cervix was grasped with single-tooth tenaculum. The Rosalinda and IUD was easily removed. The uterus sounded to 10 cm and the cervix diameter was 4 cm. The appropriate manipulator tip and ring were placed on the Juliann manipulator. The Juliann manipulator was then placed in the uterus. Barajas catheter was also placed. Attention was then turned to the abdomen and gloves were changed. A 5 mm supraumbilical incision was made the scalpel and a 5 mm optical trocar was placed under direct visualization. 10 cm to the right of this and 2 cm down a 5 mm incision was made and 8 mm da Wilder port was placed under direct visualization. Same measurements on the opposite side of the patient's abdomen, the 5 mm incision was made and 8 mm da Wilder port was placed under direct visualization. In the left upper quadrant a 10 mm incision was made and a 10 mm optical trocar was placed under direct visualization. The 5 mm optical trocar was then replaced with the 8 mm da Wilder camera port. The robot was docked on patient's right side. The camera was introduced and then the monopolar curved scissor and laparoscopic vessel sealer placed under direct visualization. I broke scrub and went to the physician console. The left infundibulopelvic ligament was cauterized with the [place] bipolar and cut with monopolar curved scissors. Survey of the pelvis revealed an absent left tube and ovary consistent with her previous history, normal uterus, cyst on the right fallopian tube and normal right ovary. The right mesosalpinx was sealed and cut with the vessel sealer to remove the right fallopian tube. The right fallopian tube had a cyst that was then drained, serous fluid noted, then the right fallopian tube was removed through the automotive parts counter assistant port. The right round ligament sealed and cut with the vessel sealer. Posterior leaf of the broad ligament was taken down using the monopolar curved scissors and the anterior leaf was taken down using the monopolar curved scissors. The uterine artery was sealedcut with the vessel sealer. The bladder flap was started on this side. The left round ligament and utero ovarian ligaments were sealed and cut with the vessel sealer. The posterior leaf of the broad ligament was taken down using the monopolar curved scissors and the anterior leaf was taken down using the monopolar curved scissors. The uterine artery was sealed and cut with the vessel sealer. The bladder flap was then finished on this side using the monopolar curved scissors. Anterior colpotomy was made using the monopolar curved scissors. The rest of the uterus was from the vaginal cuff by following the ring around with the monopolar curved scissors through the uterosacral ligaments back to the anterior portion. Once the uterus and cervix were amputated they were pulled through the vaginal cuff. Hemostasis was assured. The instruments were changed for the Cardier forcep and the johnathan suture cut. The vaginal cuff was then closed using 2-O stratafix barbed suture in a running fashion. Hemostasis was again assured and the pelvis was irrigated. All instruments were removed from the abdomen and the robot was undocked. I scrubbed back in to perform a cystoscopy. There were jets from both ureteral orifices. The abdominal incisions were closed with 4-0 Vicryl in a subcuticular fashion. Patient tolerated the procedure well, sponge and instrument counts correct 2 and she was taken to recovery room in stable condition condition
[2023-04-15] MEDS ORDERED: KETOROLAC 15 MG/ML 1 ML VIAL IVP PRN (09:29)
[2023-04-15] MEDS ORDERED: diphenhydrAMINE 50 MG/ML 1 ML VIAL IVP PRN (09:29)
[2023-04-15] MEDS ORDERED: Acetaminophen-Codeine 300-30mg TAB PO PRN ×2 (09:29)
[2023-04-15] MEDS ORDERED: METOCLOPRAMIDE 5 MG/ML 2 ML VIAL IVP PRN (09:29)
[2023-04-15] MEDS: IBUPROFEN 600 MG TAB PO PRN ×2 (13:08→20:08)
[2023-04-15] MEDS ORDERED: metFORMIN 500 MG TAB PO SCH (17:30)
[2023-04-15] MEDS: SENNOSIDES-DOCUSATE SODIUM 1 EACH TAB PO SCH (20:08)
[2023-04-15] MEDS: SIMETHICONE 80 MG CHEWABLE PO PRN (23:34)
[2023-04-15] MEDS: ACETAMINOPHEN TAB 325 MG TAB PO PRN (23:36)
[2023-04-16] MEDS: IBUPROFEN 600 MG TAB PO PRN ×2 (02:57→08:33)
[2023-04-16] MEDS: ACETAMINOPHEN TAB 325 MG TAB PO PRN (05:58)
[2023-04-16 07:11] LABS: Basophils % (A) 0 %; Eosinophils # (A) 0.1 k/uL (0-0.7); Eosinophils % (A) 1 %; HCT 38.3 % (34.0-46.0); HGB 12.9 gm/dL (11.4-16.0); Lymphocytes # (A) 1.1 k/uL (1.0-4.8); Lymphocytes % (A) 13 %; MCH 30.2 pg (25.0-35.0); MCHC 33.6 g/dL (31.0-37.0); MCV 89.9 fL (80.0-100.0); Mean Platelet Volume 8.6; Monocytes # (A) 0.6 k/uL (0-1.0); Monocytes % (A) 7 %; Neutrophils # (A) 6.9 k/uL (1.3-7.7); Neutrophils % (A) 78 %; Platelet Count 266 k/uL (150-450); RBC 4.26 m/uL (3.80-5.40); RDW 13.3 % (11.5-15.5); WBC 8.8 k/uL (3.8-10.6)
--- NOTE | 2023-04-16 07:57 | P.DS ---
Providers Expected date of discharge: 04/16/23 Attending physician: Vidhi Lucio Primary care physician: Rajesh Hermosillo - Discharge Diagnosis(es) (1) Menometrorrhagia Current Visit: No Status: Resolved (2) Cervical dysplasia Current Visit: No Status: Resolved (3) S/P robot-assisted surgical procedure TLH RS and diagnostic cystoscopy Current Visit: Yes Status: Acute Hospital Course: Patient presented for IUD removal, total laparoscopic hysterectomy and right salpingectomy. She underwent this procedure without complication. Postoperatively she is doing very well. Denies nausea, vomiting, chest pain, shortness of breath or calf pain. Her pain is well-controlled she is ambulating voiding without difficulty. Patient will be discharged home post operative day #1 in stable condition to follow-up with me in 3 weeks. Plan - Discharge Summary Discharge Rx Participant: No New Discharge Prescriptions: No Action metFORMIN HCL [Glucophage] 500 mg PO W/SUPPER Discharge Medication List metFORMIN HCL [Glucophage] 500 mg PO W/SUPPER 04/10/23 [History] Follow up Appointment(s)/Referral(s): Vidhi Lucio DO [Doctor of Osteopathic Medicine] - 3 Weeks Discharge Disposition: HOME SELF-CARE
[2023-04-16 08:04] VITALS: BP 107/68; PULSE 79; RESP 16; TEMP 98.4
[2023-04-16] MEDS: SENNOSIDES-DOCUSATE SODIUM 1 EACH TAB PO SCH (08:33)
[2023-04-16] MEDS: SIMETHICONE 80 MG CHEWABLE PO PRN (08:46)
[2023-04-16] MEDS ORDERED: ACETAMINOPHEN TAB 325 MG TAB PO PRN (09:01)
== END 2023-04-16 09:40 | disposition home or self-care (01) ==
LOC: OR 05:44 → 4FBP 09:13 → OR 04-16 09:40
PROVIDERS: ATTEND Obstetrics & Gynecology
DX: D25.1 Intramural leiomyoma of uterus (principal); N80.03 Adenomyosis of the uterus; N83.8 Other noninflammatory disorders of ovary, fallopian tube and broad ligament; N87.0 Mild cervical dysplasia; N92.1 Excessive and frequent menstruation with irregular cycle; Z79.84 Long term (current) use of oral hypoglycemic drugs; Z90.49 Acquired absence of other specified parts of digestive tract; Z91.040 Latex allergy status; Z98.890 Other specified postprocedural states
CPT/HCPCS: 58571; S2900; 81025; 85025; 88307